=== PATIENT | male | born 1955 | race Caucasian/White ===

== ENCOUNTER 2020-09-28 15:45 | Emergency (ER) | payer BC, OTHER ==
--- OUTSIDE RECORDS SUMMARY | 2020-09-28 15:46 | XMS REPORT | Summary of Care ---
:1955 Author Organization [facility] Address [address] [place] [address] Care Team Providers Name Role Phone Osvaldo Ambrose MD Primary Care Provider [phone] Reason for Visit Reason Comments Follow-up medication Encounter Details Date Type Department Care Team Description 07/10/2020 Office Visit [facility] Logan Elias M D Essential hypertension (Primary Dx); Cardiology- [address] Ascending aorta dilatation; [address] [place] [address] Morbid obesity with BMI of 50.0-59.9, ad ult; [facility], [address] Hyperlipidemia, unspecified hyperlipidem ia type [place], [place] [phone] Allergies No Known Allergiesdocumented as of this encounter (statuses as of 07/12/2020) Medications Medication Sig Dispensed Refills Start Date End Date Status sildenafil (VIAGRA) 100 mg TAKE ONE 6 tablet 07/08/2019 Active tabletIndications: Erectile TABLET BY dysfunction, unspecified MOUTH ONCE erectile dysfunction type DAILY NEEDED lisinopril 20 mg Take 1 tablet 90 tablet 07/08/2019 Active tabletIndications: by mouth Essential hypertension daily. Azelastine (ASTEPRO) 0.15 % Use 1 [place] 30 mL 07/08/2019 Active (205.5 mcg) nasal in each sprayIndications: Chronic nostril allergic rhinitis daily. atorvastatin 40 mg Take 1 tablet 90 tablet 07/08/2019 Active tabletIndications: by mouth at Hypercholesterolemia bedtime. pantoprazole 40 mg EC Take 1 tablet 30 tablet 5 05/24/2020 Active tabletIndications: by mouth Gastroesophageal reflux daily. disease without esophagitis carvediloL 6.25 mg tablet Take 1 tablet 60 tablet 5 06/04/2020 Active by mouth 2 (two) times daily with meals. documented as of this encounter (statuses as of 07/12/2020) Active Problems Problem Noted Date Prediabetes 10/28/2017 Chronic allergic rhinitis, unspecified seasonality, un specified trigger 10/20/2017 Morbid obesity with BMI of 50.0-59.9, adult 10/20/2017 Bilateral lower extremity edema 10/20/2017 Non-seasonal allergic rhinitis due to pollen 6 Hypercholesterolemia 08/29/2016 ED (erectile dysfunction) 08/29/2016 Essential hypertension 08/29/2016 documented as of this encounter (statuses as of 07/12/2020) Social History Tobacco Use Types Packs/Day Years Used Date Former Smoker Quit: 1988 Smokeless Tobacco: Never Used Alcohol Use Drinks/Week oz/Week Comments Yes 1 Shots of liquor 1.0 0 Standard drinks or equivalent Sex Assigned at Date Recorded Not on file COVID-19 Exposure Response Date Recorded In the last month, have you been in contact with No / Unsure 07/10/2020 11:39 AM CDT someone who was confirmed or suspected to have Coronavirus / COVID-19? documented as of this encounter Last Filed Vital Signs Vital Sign Reading Time Taken Comments Blood Pressure 122/66 07/10/2020 11:39 AM CDT Pulse 69 07/10/2020 11:39 AM CDT Temperature - - Respiratory Rate 18 07/10/2020 11:39 AM CDT Oxygen Saturation - - Inhaled Oxygen Concentration - - Weight 175.8 kg (387 lb 9.6 oz) 07/10/2020 11:39 AM CDT Height 193 cm (6' 4") 07/10/2020 11:39 AM CDT Body Mass Index 47.18 07/10/2020 11:39 AM CDT documented in this encounter Progress Notes Logan Elias MD - 07/10/2020 11:20 AM CDT CARDIOLOGY CLINIC NOTE 07/10/2020 Reason for Referral/Presenting Complaint: ER follow up PCP: Osvaldo Ambrose History of Present Illness: Eugenio Pavon is a 65 years old male with history of morbid obesity, HTN and HLD. In 05/2020 he wentto [facility] ER for nausea and burping. Relieved by GI cocktail. No chest pain. Chronic dyspnea on exertion. ECHO showed normal LVEF. 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 We added coreg 6.25 mg BID. His BP is normal now. Feeling well. Cardiovascular testing: EKG: Normal sinus rhythm Low voltage QRS ECHO There is mild concentric left ventricular hypertrophy. Left ventricular systolic function is normal. Diastolic function is impaired relaxation. The right ventricle is normal in size and function. RVSP: 17 + RAP. IVC not well seen. Moderately dilated ascending aorta. Borderline aortic root dilatation. Review of Systems: General: (-) fever, (-) chills, (-) weight change, (-) dizziness, (-) fatigue Skin: (-) rash HEENT: (-) headache, (-) change in vision Neck: (-) difficulty swallowing Heme: negative Resp: (-) cough, (+) dyspnea on exertion Cardio: (-) chest pain, (-) palpitations, (-) syncope GI: (-) vomiting, (-) diarrhea : negative Endo: (-) diabetes, (-) thyroid disease Neuro: (-) numbness, (-) tingling, (-) weakness Back: (-) pain FRANKIE: (-) muscle pain, (-) claudication Psych: (-) anxiety, (-) depression Past Medical History: Past Medical History: Diagnosis Date Allergic rhinitis ED (erectile dysfunction) Hyperlipidemia Hypertension Current Medications: Current Outpatient Medications Medication Sig Dispense Refill carvediloL 6.25 mg tablet Take 1 tablet by mouth 2 (two) times daily with meals. 60 tablet 5 pantoprazole 40 mg EC tablet Take 1 tablet by mouth daily. 30 tablet 5 lisinopril 20 mg tablet Take 1 tablet by mouth daily. 90 tablet 4 atorvastatin 40 mg tablet Take 1 tablet by mouth at bedtime. 90 tablet 4 Azelastine (ASTEPRO) 0.15 % (205.5 mcg) nasal spray Use 1 [place] in each nostril daily. 30 mL 12 sildenafil (VIAGRA) 100 mg tablet TAKE ONE TABLET BY MOUTH ONCE DAILY NEEDED 6 tablet 12 No current facility-administered medications for this visit. Social History: Social History Socioeconomic History Marital status: Spouse name: Not on file Number of children: Not on file Years of education: Not on file Highest education level: Not on file Occupational History Not on file Social Needs Financial resource strain: Not on file Food insecurity Worry: Not on file Inability: Not on file Transportation needs Medical: Not on file Non-medical: Not on file Tobacco Use Smoking status: Former Smoker Quit date: 1988 Years since quittin.7 Smokeless tobacco: Never Used Substance and Sexual Activity Alcohol use: Yes Alcohol/week: 1.0 standard drinks Types: 1 Shots of liquor per week Drug use: No Sexual activity: Yes Partners: Female Lifestyle Physical activity Days per week: Not on file Minutes per session: Not on file Stress: Not on file Relationships Social connections Talks on phone: Not on file Gets together: Not on file Attends methodist service: Not on file Active member of club or organization: Not on file Attends meetings of clubs or organizations: Not on file Relationship status: Not on file Intimate partner violence Fear of current or ex partner: Not on file Emotionally abused: Not on file Physically abused: Not on file Forced sexual activity: Not on file Other Topics Concern Not on file 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 Family History Family History Problem Relation Age of Onset Heart Mother Heart Father CHF, pacemaker Hypertension Father Physical Examination: BP 122/66 (BP Location: Right arm, Patient Position: Sitting, BP CUFF SIZE: Adult Large) | Pulse 69 | Resp 18 | Ht 6' 4" (1.93 m) | Wt 387 lb 9.6 oz (175.8 kg) | BMI 47.18 kg/m Constitutional: alert and oriented x 3 (person, place and date/time); no apparent distress, obese ENT: normocephalic atraumatic, supple, no lymphadenopathy, no bruits, no JVD Lungs: clear to auscultation bilaterally Cardiovascular: S1, S2 normal, regular; no murmurs, rubs or gallops GI: soft; non-tender; non-distended; normoactive bowel sounds : not examined Musculoskeletal: Extremities: no clubbing, cyanosis, or edema Skin: no rashes Neuro: no focal deficits Assessment/Plan: ICD-10-CM ICD-9-CM 1. Essential hypertension I10 401.9 2. Ascending aorta dilatation I77.810 447.71 3. Morbid obesity with BMI of 50.0-59.9, adult E66.01 278.01 Z68.43 V85.43 4. Hyperlipidemia, unspecified hyperlipidemia type E78.5 272.4 CRUZ--likely due to morbid obesity. Consider stress test in the future. HTN--It has been well controlled with the addition of coreg. Advised to check at home. Continue lisinopril. HLD--continue lipitor. Ascending aorta dilation--will get serial ECHO. Patient was counseled for lifestyle modifications including: diet, exercise and weight loss. RTC 6 months Logan Elias MD, FACCBRAYDEN Supervisor General, Division of Cardiology [facility] documented in this encounter Plan of Treatment Date Type Specialty Care Team Description 01/07/2021 Office Visit Cardiology Logan Elias M D [address] [place] [address] [place] [address] [phone] Health Maintenance Due Date Last Done Comments HEPATITIS C (HCV) SCREEN 1955 DTaP,Tdap,and Td Vaccines (1 - Tdap) 1973 COLON CANCER SCREENING ANNUAL FIT/FOBT 2004 COLON CANCER SCREENING FIT DNA EVERY 3 YEARS 2004 COLON CANCER SCREENING SIGMOIDOSCOPY EVERY 5 YEARS 2004 COLONOSCOPY 2004 Colorectal Cancer Screening 2004 Zoster Recombinant Vaccine (SHINGRIX) (1 of 2) 2004 Medicare Wellness Visit 2019 PNEUMOCOCCAL VACCINES 65+ (1 of 1 - PPSV23) 2019 INFLUENZA VACCINE (#1) 2020 Depression Screening 09/12/2020 09/12/2019 documented as of this encounter Results Not on filedocumented in this encounter Visit Diagnoses Diagnosis Essential hypertension - Primary Unspecified essential hypertension Ascending aorta dilatation Thoracic aortic ectasia Morbid obesity with BMI of 50.0-59.9, ad ult Hyperlipidemia, unspecified hyperlipidem ia type documented in this encounter Insurance Payer Benefit Plan / Subscriber ID Effective Dates Phone Addre ss Type Group MEDICARE MEDICARE PART [id number] 2019-Celena [phone] P. [address]. [facility] Medicare A & B nt 2 [id number] [place] [phone] ([place]) [address] [address] documented as of this encounter
--- OUTSIDE RECORDS SUMMARY | 2020-09-28 15:47 | XMS REPORT | Summary of Care ---
:1955 Author Organization [facility] Address [address] [place] [address] Care Team Providers Name Role Phone Osvaldo Ambrose MD Primary Care Provider [phone] Reason for Visit Reason Comments Follow-up medication Encounter Details Date Type Department Care Team Description 07/10/2020 Office Visit [facility] Logan Elias M D Essential hypertension (Primary Dx); Cardiology- [address] Ascending aorta dilatation; [address] [place] [address] Morbid obesity with BMI of 50.0-59.9, ad ult; [facility], [address] Hyperlipidemia, unspecified hyperlipidem ia type [place], [place] [phone] Allergies No Known Allergiesdocumented as of this [...] daily. Azelastine (ASTEPRO) 0.15 % Use 1 Kim 30 mL 07/08/2019 Active (205.5 mcg) nasal [...] HTN and HLD. In 05/2020 he wentto [facility] ER for nausea and burping. Relieved [...] % (205.5 mcg) nasal spray Use 1 Kim in each nostril daily. 30 mL 12 [...] file Gets together: Not on file Attends baptism service: Not on file Active member of [...] RTC 6 months Logan Elias MD, FACCBRAYDEN Mathematical Statistician, Division of Cardiology [facility] documented in this encounter Plan of Treatment Date Type Specialty Care Team Description 01/07/2021 Office Visit Cardiology Logan Elias M D [address] [place] [address] [place] [address] [phone] Health Maintenance Due Date Last Done Comments [...] Addre ss Type Group MEDICARE MEDICARE PART [id number] 2019-Celena [phone] [address] [address] Medicare A & B nt 2 [id number] [place] [phone] Guarantor Name Account Type Relation to Date of Phone Bill ing Patient Address Eugenio Pavon Personal/Family Self [address] [place] [address] ([place]) [address] [address] documented as of this encounter
--- OUTSIDE RECORDS SUMMARY | 2020-09-28 15:47 | XMS REPORT | Summary of Care ---
:1955 Author Organization [facility] Address [address] [place] [address] Care Team Providers Name Role Phone Osvaldo Ambrose MD Primary Care Provider [phone] Reason for Visit Reason Comments Refill Request Encounter Details Date Type Department Care Team Description 08/27/2020 Office Visit [facility] Family Osvaldo Ambrose hypertension (Primary Dx); Medicine - Atif Jacinto MD Hypercholesterolemia; [address] [place] [address] Chronic allergic rhinitis; Drive [place], [place] Erectile dysfunction, unspec ified [place] [phone] Allergies No Known Allergiesdocumented as of this encounter (statuses as of 08/27/2020) Medications Medication Sig Dispensed Refills Start End Date Status Date pantoprazole 40 mg EC Take 1 30 tablet 5 Active tabletIndications: tablet by 0 Gastroesophageal reflux mouth disease without daily. esophagitis carvediloL 6.25 mg Take 1 60 tablet 5 A ctive tablet tablet by 0 mouth 2 (two) times daily with meals. atorvastatin 40 mg Take 1 90 tablet 4 A ctive tabletIndications: tablet by 0 Hypercholesterolemia mouth at bedtime. Azelastine (ASTEPRO) Use 1 [place] 30 mL 12 Active 0.15 % (205.5 mcg) nasal in each 0 sprayIndications: nostril Chronic allergic daily. rhinitis lisinopriL 20 mg Take 1 90 tablet 4 Act izabel tabletIndications: tablet by 0 Essential hypertension mouth daily. sildenafiL (VIAGRA) 100 TAKE ONE 10 tablet 12 Active mg tabletIndications: TABLET BY 0 Erectile dysfunction, MOUTH ONCE unspecified erectile DAILY dysfunction type NEEDED sildenafil (VIAGRA) 100 TAKE ONE 6 tablet 12 Discontinued mg tabletIndications: TABLET BY 20 (Reorder) Erectile dysfunction, MOUTH ONCE unspecified erectile DAILY dysfunction type NEEDED lisinopril 20 mg Take 1 90 tablet 4 08/27/20 Dis continued tabletIndications: tablet by 20 ( Reorder) Essential hypertension mouth daily. Azelastine (ASTEPRO) Use 1 [place] 30 mL 12 0 Discontinued 0.15 % (205.5 mcg) nasal in each 07 01 (Reorder) sprayIndications: nostril Chronic allergic daily. rhinitis atorvastatin 40 mg Take 1 90 tablet 4 08/27/20 D iscontinued tabletIndications: tablet by 07 01 ( Reorder) Hypercholesterolemia mouth at bedtime. documented as of this encounter (statuses as of 08/27/2020) Active Problems Problem Noted Date Prediabetes 10/28/2017 Chronic allergic rhinitis, unspecified seasonality, un specified trigger 10/20/2017 Morbid obesity with BMI of 50.0-59.9, adult 10/20/2017 Bilateral lower extremity edema 10/20/2017 Non-seasonal allergic rhinitis due to pollen 6 Hypercholesterolemia 08/29/2016 ED (erectile dysfunction) 08/29/2016 Essential hypertension 08/29/2016 documented as of this encounter (statuses as of 08/27/2020) Social History Tobacco Use Types Packs/Day Years Used Date Former Smoker Quit: 1988 Smokeless Tobacco: Never Used Alcohol Use Drinks/Week oz/Week Comments Yes 1 Shots of liquor 1.0 0 Standard drinks or equivalent Sex Assigned at Date Recorded Not on file COVID-19 Exposure Response Date Recorded In the last month, have you been in contact with No / Unsure 08/27/2020 1:36 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 documented as of this encounter Last Filed Vital Signs Vital Sign Reading Time Taken Comments Blood Pressure 129/73 08/27/2020 1:39 PM IMMIGRATION CASE WORKER Pulse 69 08/27/2020 1:39 PM IMMIGRATION CASE WORKER Temperature - - Respiratory Rate - - Oxygen Saturation - - Inhaled Oxygen Concentration - - Weight 175.5 kg (387 lb) 08/27/2020 1:39 PM IMMIGRATION CASE WORKER Height 182.9 cm (6') 08/27/2020 1:39 PM IMMIGRATION CASE WORKER Body Mass Index 52.49 08/27/2020 1:39 PM IMMIGRATION CASE WORKER documented in this encounter Progress Notes Osvaldo Ambrose MD - 08/27/2020 1:30 PM CST CC: medication refills Eugenio is a 65 year old male Hypertension Chronicity: Chronic Context: normal sodium, not caffeine, not drug abuse, not herbal remedies, not medication change, not noncompliance and not OTC medications used Relieved by: LUCY inhibitors and beta blockers Associated symptoms: no chest pain, no epistaxis, no headaches, no palpitations, no peripheral edemaand no shortness of breath Risk factors: family hx of HTN and obesity No Known Allergies Current Outpatient Medications Medication Sig Dispense Refill atorvastatin 40 mg tablet Take 1 tablet by mouth at bedtime. 90 tablet 4 Azelastine (ASTEPRO) 0.15 % (205.5 mcg) nasal spray Use 1 [place] in each nostril daily. 30 mL 12 lisinopriL 20 mg tablet Take 1 tablet by mouth daily. 90 tablet 4 sildenafiL (VIAGRA) 100 mg tablet TAKE ONE TABLET BY MOUTH ONCE DAILY NEEDED 10 tablet 12 carvediloL 6.25 mg tablet Take 1 tablet by mouth 2 (two) times daily with meals. 60 tablet 5 pantoprazole 40 mg EC tablet Take 1 tablet by mouth daily. 30 tablet 5 No current facility-administered medications for this visit. 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 Respiratory: Negative for shortness of breath. Cardiovascular: Negative for chest pain and palpitations. Neurological: Negative for headaches. BP 129/73 | Pulse 69 | Ht 6' (1.829 m) | Wt 387 lb (175.5 kg) | BMI 52.49 kg/m Physical Exam Constitutional: He is oriented to person, place, and time. He appears well- developed and well-nourished. HENT: Head: Normocephalic and atraumatic. Eyes: Conjunctivae are normal. Neck: Normal range of motion. Neck supple. No JVD present. No tracheal deviation present. No thyromegaly present. Cardiovascular: Normal rate, regular rhythm, normal heart sounds and intact distal pulses. Exam reveals no gallop and no friction rub. No murmur heard. Pulmonary/Chest: Effort normal and breath sounds normal. No respiratory distress. He has no wheezes.He has no rales. He exhibits no tenderness. Abdominal: Soft. Bowel sounds are normal. He exhibits no distension and no mass. There is no abdominal tenderness. There is no rebound and no guarding. Musculoskeletal: Normal range of motion. General: No tenderness or edema. Lymphadenopathy: He has no cervical adenopathy. Neurological: He is alert and oriented to person, place, and time. Skin: Skin is warm and dry. Diagnosis: 1. Essential hypertension lisinopriL 20 mg tablet 2. Hypercholesterolemia atorvastatin 40 mg tablet 3. Chronic allergic rhinitis Azelastine (ASTEPRO) 0.15 % (205.5 mcg) nasal spray 4. Erectile dysfunction, unspecified erectile dysfunction type sildenafiL (VIAGRA) 100 mg tablet Follow up: prn Patient Care Team: Osvaldo Ambrose MD as PCP - General ([facility]-FAMILY MEDICINE) Plan of care, desired health behaviors, goals,& medication discussed with patient. Education resources & self management tools provided and reviewed with AVS. Patient/guardian/family verbalized understanding & agrees to plan of care. Barriers to care: None Ability to manage care: Good documented in this encounter Plan of Treatment Date Type Specialty Care Team Description 01/07/2021 Office Visit Cardiology Logan Elias M D [address] [place] [address] 15 [phone] Health Maintenance Due Date Last Done Comments [...] Essential hypertension - Primary Unspecified essential hypertension Hypercholesterolemia Pure hypercholesterolemia Chronic allergic rhinitis Allergic rhinitis, cause unspecified Erectile dysfunction, unspecified erecti le dysfunction type documented in this encounter Insurance Payer Benefit Plan / Subscriber ID Effective Dates Phone Addre ss Type Group MEDICARE MEDICARE PART [id number] 2019-Celena [phone] [address] Medicare A & B nt 2 [id number] [place] [phone] ([place]) [address] [address] documented as of this encounter"
--- OUTSIDE RECORDS SUMMARY | 2020-09-28 15:47 | XMS REPORT | Summary of Care ---
:1955 Author Organization [facility] Address [address] [place] [address] Care Team Providers Name Role Phone Osvaldo Ambrose MD Primary Care Provider [phone] Reason for Visit Reason Comments Refill Request Encounter Details Date Type Department Care Team Description 08/27/2020 Office Visit [facility] Family Osvaldo Ambrose hypertension (Primary Dx); Medicine - Atif Jacinto MD Hypercholesterolemia; [address] [place] [address] Chronic allergic rhinitis; Drive [place], [place] Erectile dysfunction, unspec ified [place] [phone] Allergies No Known Allergiesdocumented as of this [...] mouth at bedtime. Azelastine (ASTEPRO) Use 1 [place] 30 mL 12 Active 0.15 % (205.5 [...] hypertension mouth daily. 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 documented as of this encounter Last Filed Vital Signs Vital Sign Reading Time Taken Comments Blood Pressure 129/73 08/27/2020 1:39 PM CHIEF BUSINESS OFFICER Pulse 69 08/27/2020 1:39 PM CHIEF BUSINESS OFFICER Temperature - - Respiratory Rate - - Oxygen Saturation - - Inhaled Oxygen Concentration - - Weight 175.5 kg (387 lb) 08/27/2020 1:39 PM CHIEF BUSINESS OFFICER Height 182.9 cm (6') 08/27/2020 1:39 PM CHIEF BUSINESS OFFICER Body Mass Index 52.49 08/27/2020 1:39 PM CHIEF BUSINESS OFFICER documented in this encounter Progress Notes Osvaldo [...] % (205.5 mcg) nasal spray Use 1 [place] in each nostril daily. 30 mL 12 [...] file Gets together: Not on file Attends temple service: Not on file Active member of [...] Office Visit Cardiology Logan Elias M D [address] [place] [address] [phone] Health Maintenance Due Date Last Done Comments [...] Addre ss Type Group MEDICARE MEDICARE PART [id number] 2019-Celena [phone] [address] Medicare A & B nt 2 [id number] [place] [phone] ([place]) [address] [address] documented as of this encounter"
--- OUTSIDE RECORDS SUMMARY | 2020-09-28 15:47 | XMS REPORT | Continuity of Care Document ---
:1955 Author Organization [facility] t Address [address] [place] [address] Care Team Providers Name Role Phone Orville Ambrose MD Attending Clinician Problems This patient has no known problems. Allergies, Adverse Reactions, Alerts This patient has no known allergies or adverse reactions. Medications This patient has no known medications. Procedures This patient has no known procedures. Encounters Start End Encounter Admission Attending Care Care Encounter Source Date/Time Date/Time Type Type Clinicians Facility Department ID 2020-08-27 2020-08-27 Office FRANSICO Ambrose [id number] 13:37:48 13:52:48 Visit [facility] [id number] Orville Srivastava [id number] Sami [id number] nal 044 Office Building One Results This patient has no known results.
[2020-09-28] MEDS ORDERED: LIDOCAINE 1% MPF 5 ML VIAL ONE (17:36)
[2020-09-28] MEDS ORDERED: BUPIVACAINE 0.5% PF 10 ML VIAL ONE (17:36)
[2020-09-28] MEDS ORDERED: TETANUS & DIPHTHERIA TOX,ADULT 0.5 ML VIAL ONE (17:37)
--- NOTE | 2020-09-28 19:01 | ER ---
Nurse's Notes [facility] Name: Eugenio Pavon Age: 65 yrs Sex: Male : 1955 Arrival Date: 09/28/2020 Time: 15:47 Bed 15 Private MD: Diagnosis: Laceration without foreign body of unspecified thumb without damage to nail-left Presentation: 09/28 15:55 Chief complaint: Patient states: "I cut my left thumb with a pocket knife". Moderate aa5 bleeding noted, pressure dressing applied to left thumb. Coronavirus screen: Client denies travel out of the [place] in the last 14 days. At this time, the client does not indicate any symptoms associated with coronavirus-19. Ebola Screen: Patient negative for fever greater than or equal to 101.5 degrees Fahrenheit, and additional compatible Ebola Virus Disease symptoms. Initial Sepsis Screen: Does the patient meet any 2 criteria? No. Patient's initial sepsis screen is negative. Does the patient have a suspected source of infection? No. Patient's initial sepsis screen is negative. Risk Assessment: Do you want to hurt yourself or someone else? Patient reports no desire to harm self or others. Onset of symptoms was September 28, 2020. 15:55 Acuity: OSIEL 4 aa5 15:55 Method Of Arrival: Ambulatory aa5 Historical: - Allergies: 15:54 No Known Allergies; aa5 - PMHx: 15:54 Hypertension; aa5 - Immunization history:: Last tetanus immunization: unknown. - Social history:: Smoking status: Patient denies any tobacco usage or history of. Screenin:25 Abuse screen: Denies threats or abuse. Denies injuries from another. Nutritional sv screening: No deficits noted. Tuberculosis screening: No symptoms or risk factors identified. Fall Risk None identified. Assessment: 17:25 General: Appears in no apparent distress. uncomfortable, obese, well groomed, well sv developed, Behavior is calm, cooperative, appropriate for age. Pain: Complains of pain in palmar aspect of distal phalanx of left thumb Pain currently is 5 out of 10 on a pain scale. Is continuous. Neuro: Level of Consciousness is awake, alert, obeys commands, Oriented to person, place, time, situation, Moves all extremities. Full function Gait is steady, Speech is normal. Respiratory: Respiratory effort is even, unlabored, Respiratory pattern is regular, symmetrical. Derm: Skin is pink, warm \\T\\ dry. 19:00 Reassessment: Patient appears in no apparent distress at this time. Patient and/or jb4 family updated on plan of care and expected duration. Pain level reassessed. Patient is alert, oriented x 3, equal unlabored respirations, skin warm/dry/pink. Provider finishing laceration repair. Vital Signs: 15:55 BP 122 / 72; Pulse 90; Resp 18 S; Temp 97.3(TE); Pulse Ox 98% on R/A; Weight 167.83 kg aa5 (R); Height 6 ft. 0 in. (182.88 cm) (R); Pain 5/10; 16:54 BP 125 / 66; Pulse 82; Resp 16; Pulse Ox 96% ; sv 19:17 Pulse 75; Resp 16; Pulse Ox 100% on R/A; jb4 15:55 Body Mass Index 50.18 (167.83 kg, 182.88 cm) aa5 ED Course: 15:47 Patient arrived in ED. rg4 15:54 Arm band placed on. aa5 15:56 Triage completed. aa5 16:52 Gala Cagle RN is Primary Nurse. sv 16:52 Kael Arrington PA is PHCP. cp 16:52 Cristofer Dejesus MD is Attending Physician. cp 17:25 Patient has correct armband on for positive identification. Bed in low position. Side sv rails up X 1. Door closed. Head of bed elevated. 18:56 Primary Nurse role handed off by Gala Cagle RN sv 19:00 Assist provider with laceration repair on left hand that was 2.5 cm. or less using jb4 sutures. Set up tray. Performed by Kael FANG Dressed with band aid, Patient tolerated well. 19:00 Patient did not have IV access during this emergency room visit. jb4 19:01 Osvaldo Starkey RN is Primary Nurse. 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 Exp: sv 01/31/2022. Lot #: [id number]. } Route: IM; Site: right deltoid; 17:37 Follow up: Response: No adverse reaction sv 18:41 Drug: Lidocaine (1 %) 5 ml {Note: given to Kael FANG.} Volume: 5 ml; Route: Infiltration;sv 18:41 Drug: Marcaine (0.5 %) 5 ml {Note: given to Kael FANG.} Volume: 10 ml; Route: sv Infiltration; Outcome: 19:01 Discharge ordered by . kevin 19:20 Discharged to home ambulatory. jb4 19:20 Condition: stable 19:20 Discharge instructions given to patient, Instructed on discharge instructions, follow up and referral plans. wound care, Demonstrated understanding of instructions, follow-up care, wound care. 19:21 Patient left the ED. jb4 Signatures: Gala Cagle, RN RN Bailey Chinchilla, RN RN aa5 Kael Arrington PA PA cp Garcia, Rubi 4 Osvaldo Starkey, SONG RN jb4
--- NOTE | 2020-09-28 19:01 | EDPHYS ---
Physician Documentation [facility] Name: Eugenio Pavon Age: 65 yrs Sex: Male : 1955 Arrival Date: 09/28/2020 Time: 15:47 Bed 15 Private MD: ED Physician Cristofer Dejesus HPI: 09/28 18:25 This 65 yrs old Male presents to ER via Ambulatory with complaints of Finger cp Laceration. 18:25 The patient or guardian reports a laceration, clean. cp 18:25 The complaints affect the palmar aspect of distal phalanx of left thumb. cp 18:25 Context: resulted from use of pocket knife. cp 18:25 Onset: The symptoms/episode began/occurred just prior to arrival. Associated signs and cp symptoms: Pertinent negatives: cyanosis distally, decreased sensation distally. Historical: - Allergies: 15:54 No Known Allergies; aa5 - PMHx: 15:54 Hypertension; aa5 - Immunization history:: Last tetanus immunization: unknown. - Social history:: Smoking status: Patient denies any tobacco usage or history of. ROS: 18:30 Skin: Positive for laceration(s), of the palmar aspect of distal phalanx of left thumb. cp 18:30 Neuro: Negative for numbness, tingling, weakness. cp 18:30 All other systems are negative. Exam: 18:35 Constitutional: The patient appears in no acute distress, alert, awake, well developed, cp well nourished. 18:35 Musculoskeletal/extremity: ROM: full active range of motion, in the left thumb, cp Perfusion: the extremity is normally perfused throughout, Sensation intact. Nails: intact with no signs of injury to left thumbnail. 18:35 Skin: injury, laceration(s), the wound is approximately 2 cm(s), of the palmar aspect of distal phalanx of left thumb, that can be described as clean, no foreign body, linear, with mild bleeding. Vital Signs: 15:55 BP 122 / 72; Pulse 90; Resp 18 S; Temp 97.3(TE); Pulse Ox 98% on R/A; Weight 167.83 kg aa5 (R); Height 6 ft. 0 in. (182.88 cm) (R); Pain 5/10; 16:54 BP 125 / 66; Pulse 82; Resp 16; Pulse Ox 96% ; sv 19:17 Pulse 75; Resp 16; Pulse Ox 100% on R/A; jb4 15:55 Body Mass Index 50.18 (167.83 kg, 182.88 cm) aa5 Laceration: 18:59 Wound Repair of 2cm ( 0.8in ) subcutaneous laceration to palmar aspect of distal cp phalanx of left thumb. Linear shaped.. Distal neuro/vascular/tendon intact. Anesthesia: Digital block administered with 5 mls of Lido/Marcaine. Wound prep: Moderate cleansing by me, Wound irrigation by me. Skin closed with 4 5-0 Prolene using simple sutures and sterile technique. Dressed with Bacitracin, 4x4's. Patient tolerated well. MDM: 16:59 Patient medically screened. cp 19:00 Data reviewed: vital signs, nurses notes, and as a result, I will discharge patient. cp 19:00 Differential diagnosis: open fracture, tendon injury, simple laceration. Counseling: I cp had a detailed discussion with the patient and/or guardian regarding: the historical points, exam findings, and any diagnostic results supporting the discharge/admit diagnosis, to return to the emergency department if symptoms worsen or persist or if there are any questions or concerns that arise at home. Response to treatment: the patient's symptoms have markedly improved after treatment, and as a result, I will discharge patient. 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 Exp: sv 01/31/2022. Lot #: [id number]. } Route: IM; Site: right deltoid; 17:37 Follow up: Response: No adverse reaction sv 18:41 Drug: Lidocaine (1 %) 5 ml {Note: given to Kael BOYCE} Volume: 5 ml; Route: Infiltration;sv 18:41 Drug: Marcaine (0.5 %) 5 ml {Note: given to Kael FANG.} Volume: 10 ml; Route: sv Infiltration; Disposition: 19:25 Chart complete. cp Disposition: 09/28/20 19:01 Discharged to Home. Impression: Laceration without foreign body of unspecified thumb without damage to nail - left. - Condition is Stable. - Discharge Instructions: Laceration Care, Adult. - Medication Reconciliation Form, Thank You Letter, Antibiotic Education, Prescription Opioid Use form. - Follow up: Private Physician; When: 7 - 10 days; Reason: Staple/Suture removal. - Problem is new. - Symptoms have improved. Addendum: 09/30/2020 06:53 Co-signature as Attending Physician, Cristofer Dejesus MD I agree with the assessment and k dr plan of care. Signatures: Gala Cagle, RN RN Cristofer Chan MD MD kdr Bailey Perez RN RN aa5 Kael Arrington PA PA cp Osvaldo Starkey RN RN jb4 Corrections: (The following items were deleted from the chart) 09/28 19:21 19:01 09/28/2020 19:01 Discharged to Home. Impression: Laceration without foreign body jb4 of unspecified thumb without damage to nail - left. Condition is Stable. Forms are Medication Reconciliation Form, Thank You Letter, Antibiotic Education, Prescription Opioid Use. Follow up: Private Physician; When: 7 - 10 days; Reason: Staple/Suture removal. Problem is new. Symptoms have improved. cp
[2020-10-01 17:18] VITALS: TEMP 97.3
[2020-10-01 17:20] VITALS: BP 125/66
[2020-10-01 17:21] VITALS: O2SAT 100
== END 2020-09-28 19:21 | disposition home or self-care (01) ==
LOC: ER 15:45
PROC: 0JQK0ZZ Repair Left Hand Subcutaneous Tissue and Fascia, Open Approach (ICD-10-PCS; principal; 2020-09-28)
DX: S61.012A Laceration without foreign body of left thumb without damage to nail, initial encounter (principal); W26.0XXA Contact with knife, initial encounter; Y93.9 Activity, unspecified; Y92.9 Unspecified place or not applicable; Z23 Encounter for immunization; I10 Essential (primary) hypertension
CPT/HCPCS: 90471; 90714; 99283

== ENCOUNTER 2020-11-13 06:43 | Emergency (ER) | payer OTHER ==
--- OUTSIDE RECORDS SUMMARY | 2020-11-13 06:45 | XMS REPORT | Summary of Care ---
:1955 Author Organization [facility] Address [address] [place] [address] Care Team Providers Name Role Phone Osvaldo Ambrose MD Primary Care Provider [phone] Reason for Visit Reason Comments Suture Removal Suture removal from Left Nayeli mb Encounter Details Date Type Department Care Team Description 10/08/2020 Office Visit [facility] Family Osvaldo Ambrose Open wo und of left Medicine - Atif Jacinto MD thumb, subsequent [address] [place] [address] DR encounter ([address] [place], [place] Dx) [place] [id number] [phone] Allergies No Known Allergiesdocumented as of this encounter (statuses as of 10/08/2020) Medications Medication Sig Dispensed Refills Start Date End Date Status pantoprazole 40 mg EC Take 1 tablet 30 tablet 5 05/24/2020 Active tabletIndications: by mouth Gastroesophageal reflux daily. disease without esophagitis carvediloL 6.25 mg tablet Take 1 tablet 60 tablet 5 06/04/2020 Active by mouth 2 (two) times daily with meals. atorvastatin 40 mg Take 1 tablet 90 tablet 4 08/27/2020 Active tabletIndications: by mouth at Hypercholesterolemia bedtime. Azelastine (ASTEPRO) 0.15 % Use 1 Bovey 30 mL 12 08/27/2020 Active (205.5 mcg) nasal in each sprayIndications: Chronic nostril allergic rhinitis daily. lisinopriL 20 mg Take 1 tablet 90 tablet 4 08/27/2020 Active tabletIndications: by mouth Essential hypertension daily. sildenafiL (VIAGRA) 100 mg TAKE ONE 10 tablet 12 08/27/2020 Active tabletIndications: Erectile TABLET BY dysfunction, unspecified MOUTH ONCE erectile dysfunction type DAILY NEEDED documented as of this encounter (statuses as of 10/08/2020) Active Problems Problem Noted Date Prediabetes 10/28/2017 Chronic allergic rhinitis, unspecified seasonality, un specified trigger 10/20/2017 Morbid obesity with BMI of 50.0-59.9, adult 10/20/2017 Bilateral lower extremity edema 10/20/2017 Non-seasonal allergic rhinitis due to pollen 6 Hypercholesterolemia 08/29/2016 ED (erectile dysfunction) 08/29/2016 Essential hypertension 08/29/2016 documented as of this encounter (statuses as of 10/08/2020) Social History Tobacco Use Types Packs/Day Years Used Date Former Smoker Quit: 1988 Smokeless Tobacco: Never Used Alcohol Use Drinks/Week oz/Week Comments Yes 1 Shots of liquor 1.0 0 Standard drinks or equivalent Sex Assigned at Date Recorded Not on file documented as of this encounter Last Filed Vital Signs Vital Sign Reading Time Taken Comments Blood Pressure 122/70 10/08/2020 11:19 AM OPS ANALYST Pulse 72 10/08/2020 11:19 AM OPS ANALYST Temperature - - Respiratory Rate - - Oxygen Saturation - - Inhaled Oxygen Concentration - - Weight 179.6 kg (396 lb) 10/08/2020 11:19 AM OPS ANALYST Height 182.9 cm (6') 10/08/2020 11:19 AM OPS ANALYST Body Mass Index 53.71 10/08/2020 11:19 AM OPS ANALYST documented in this encounter Progress Notes Osvaldo Ambrose MD - 10/08/2020 11:00 AM CST CC: suture removal left thumb Eugenio is a 65 year old male Patient has a healing laceration tip of left thumb. No Known Allergies Current Outpatient Medications Medication Sig Dispense Refill atorvastatin 40 mg tablet Take 1 tablet by mouth at bedtime. 90 tablet 4 Azelastine (ASTEPRO) 0.15 % (205.5 mcg) nasal spray Use 1 Bovey in each nostril daily. 30 mL 12 [...] Former Smoker Quit date: 1988 Years since quittin.0 Smokeless tobacco: Never Used Substance and Sexual [...] file Gets together: Not on file Attends anabaptism service: Not on file Active member of [...] CHF, pacemaker Hypertension Father Review of Systems BP 122/70 | Pulse 72 | Ht 6' (1.829 m) | Wt 396 lb (179.6 kg) | BMI 53.71 kg/m Physical Exam Constitutional: He is oriented [...] Skin is warm and dry. Diagnosis: 1. Open wound of left thumb, subsequent encounter sutures removed; healing well Follow up: prn Patient Care Team: Osvaldo [...] Office Visit Cardiology Logan Elias M D [address] [place] [address] 15 [phone] Health Maintenance Due Date Last Done Comments [...] 2019 INFLUENZA VACCINE (#1) 2020 Depression Screening 08/27/2021 08/27/2020 documented as of this encounter Results Not on filedocumented in this encounter Visit Diagnoses Diagnosis Open wound of left thumb, subsequent enc ounter - Primary documented in this encounter Insurance Payer Benefit Plan / Subscriber ID Effective Dates Phone Addre ss Type Group MEDICARE MEDICARE PART [id number] 2019-Celena [phone] Medicare A & B nt 2 [id number] [place] [phone] ([place]) [address] [address] documented as of this encounter"
--- OUTSIDE RECORDS SUMMARY | 2020-11-13 06:45 | XMS REPORT | Continuity of Care Document ---
:1955 Author Organization [facility] t Address [address] [place] [address] Care Team Providers Name Role Phone Orville Ambrose MD Attending Clinician Problems This patient has no known problems. Allergies, Adverse Reactions, Alerts This patient has no known allergies or adverse reactions. Medications This patient has no known medications. Procedures This patient has no known procedures. Encounters Start End Encounter Admission Attending Care Care Encounter Source Date/Time Date/Time Type Type Clinicians Facility Department ID 2020-10-08 2020-10-08 Office FRANSICO Ambrose [id number] 11:08:40 11:23:40 Visit [facility] [id number] Orville Srivastava [id number] Sami [phone] nal 044 Office [address] Results This patient has no known results.
--- OUTSIDE RECORDS SUMMARY | 2020-11-13 06:46 | XMS REPORT | Summary of Care ---
:1955 Author Organization [facility] Address [address] [place] [address] Care Team Providers Name Role Phone Osvaldo Ambrose MD Primary Care Provider Reason for Visit Reason Comments Suture Removal Suture removal from Left Nayeli mb Encounter Details Date Type Department Care Team Description 10/08/2020 Office Visit [facility] Family Osvaldo Ambrose Open wo und of left Medicine - Atif Jacinto MD thumb, subsequent [address] [place] [address] DR encounter ([address] [place], [place] Dx) [place] [phone] [phone] Allergies No Known Allergiesdocumented as of this [...] bedtime. 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 30 mL 12 [...] file Gets together: Not on file Attends sikhism service: Not on file Active member of [...] Office Visit Cardiology Logan Elias M D [address] [place] [address] 15 [phone] Health Maintenance Due Date Last Done Comments [...] Addre ss Type Group MEDICARE MEDICARE PART [id number] 2019-Celena [phone] Medicare A & B nt 2 [id number] [place] [phone] ([place]) [address] [address] documented as of this encounter"
[2020-11-13] MEDS ORDERED: SMZ./TMP. 800/160 MG TABLET ONE (08:36)
[2020-11-13 08:37] LABS: Urine RBC TNTC /HPF (NONE SEEN)
[2020-11-13] MEDS ORDERED: HYDROCODONE/APAP 5/325 MG TAB ONE (08:37)
[2020-11-13 08:38] LABS: Urine Bacteria <20 /HPF (NONE SEEN)
[2020-11-13 08:43] LABS: Absolute Lymphocytes (CBC) 0.8 K/uL (0.7-4.9); Basophils % 0.4 % (0-1.3); Hematocrit 49.9 % (39.6-49.0); Lymphocytes % 5.9 % (15.3-44.8); MPV 9.1 fL (7.6-11.3); RBC Red Blood Cell Count 5.36 M/uL (4.33-5.43)
[2020-11-13 08:57] LABS: Albumin 3.5 g/dL (3.4-5.0); Bilirubin Total 1.5 mg/dL (0.2-1.0); Potassium 4.5 mmol/L (3.5-5.1); Protein, Total 7.1 g/dL (6.4-8.2)
[2020-11-13 09:08] LABS: Blood Morphology Comment NOT SEEN (NOT SEEN); Platelet Estimate ADEQ; White Blood Cell Scan OK (OK)
--- NOTE | 2020-11-13 10:11 | ER ---
Nurse's Notes [facility] Name: Eugenio Pavon Age: 65 yrs Sex: Male : 1955 Arrival Date: 11/13/2020 Time: 06:48 Bed 19 Private MD: Osvaldo Ambrose Diagnosis: Hematuria, unspecified Presentation: 11/13 07:33 Chief complaint: Patient states: "I started peeing blood during the night and it hurts aa5 when I pee". Pt reports burning with urination and reports urinary frequency and urgency. 07:33 Coronavirus screen: Client denies travel out of the [place] in the last 14 days. At this aa5 time, the client does not indicate any symptoms associated with coronavirus-19. Ebola Screen: Patient negative for fever greater than or equal to 101.5 degrees Fahrenheit, and additional compatible Ebola Virus Disease symptoms. Initial Sepsis Screen: Does the patient meet any 2 criteria? No. Patient's initial sepsis screen is negative. Does the patient have a suspected source of infection? No. Patient's initial sepsis screen is negative. Risk Assessment: Do you want to hurt yourself or someone else? Patient reports no desire to harm self or others. Onset of symptoms was November 2020. 07:33 Acuity: OSIEL 3 aa5 07:33 Method Of Arrival: Ambulatory aa5 Historical: - Allergies: 07:44 No Known Allergies; aa5 - PMHx: 07:44 Hypertension; aa5 - Immunization history:: Adult Immunizations unknown. - Social history:: Smoking status: Patient denies any tobacco usage or history of. Patient/guardian denies using alcohol, street drugs, The patient lives with family. - Family history:: not pertinent. Screenin:40 Abuse screen: Denies threats or abuse. Nutritional screening: No deficits noted. aa5 Tuberculosis screening: No symptoms or risk factors identified. Fall Risk None identified. Assessment: 07:33 General: Appears uncomfortable, Behavior is anxious. Pain: Denies pain. Neuro: Level of aa5 Consciousness is awake, alert, obeys commands, Oriented to person, place, time, situation. Cardiovascular: Patient's skin is warm and dry. Respiratory: Airway is patent Respiratory effort is even, unlabored, Respiratory pattern is regular, symmetrical. GI: Abdomen is obese, Reports constipation, Patient currently denies abdominal pain, diarrhea, nausea, vomiting. : Reports burning with urination, urgency, urinary frequency, hematuria since last night. EENT: No signs and/or symptoms were reported regarding the EENT system. Derm: Skin is pink, warm \\T\\ dry. Musculoskeletal: Range of motion: intact in all extremities. 08:20 Reassessment: Patient is alert, oriented x 3, equal unlabored respirations, skin aa5 warm/dry/pink. Pt now sitting up in bed, pt calm and reports anxiety has decreased. . 08:30 Reassessment: Pt ate some crackers before taking PO medications. . aa5 09:35 Reassessment: Patient appears in no apparent distress at this time. Patient and/or jd3 family updated on plan of care and expected duration. Pain level reassessed. Patient is alert, oriented x 3, equal unlabored respirations, skin warm/dry/pink. 10:33 Reassessment: Patient appears in no apparent distress at this time. Patient and/or jd3 family updated on plan of care and expected duration. Pain level reassessed. Patient is alert, oriented x 3, equal unlabored respirations, skin warm/dry/pink. Patient states feeling better. Patient states symptoms have improved. Vital Signs: 07:35 BP 144 / 88; Pulse 80; Resp 16 S; Temp 99.0(O); Pulse Ox 97% on R/A; Weight 172.37 kg aa5 (R); Height 6 ft. 0 in. (182.88 cm) (R); Pain 0/10; 10:34 BP 138 / 78; Pulse 81; Resp 16 S; Pulse Ox 98% on R/A; jd3 07:35 Body Mass Index 51.54 (172.37 kg, 182.88 cm) aa5 ED Course: 06:48 Patient arrived in ED. am2 06:48 Osvaldo Ambrose MD is Private Physician. am2 07:33 Bailey Perez, SONG is Primary Nurse. aa5 07:33 Arm band placed on Patient placed in an exam room, on a stretcher. aa5 07:33 Patient has correct armband on for positive identification. Bed in low position. Call aa5 light in reach. Side rails up X 1. 07:40 Mark Gandhi MD is Attending Physician. ma2 07:44 Triage completed. aa5 08:08 Urine collected: clean catch specimen, yaima blood, Amount Voided: 30mL sent to lab. aa5 08:25 Initial lab(s) drawn, by me, sent to lab. Inserted saline lock: 20 gauge in left aa5 antecubital area, using aseptic technique. Blood collected. 09:00 Report given to SONG Guido. aa5 10:09 Aamir Hooper MD is Referral Physician. ma2 10:34 No provider procedures requiring assistance completed. IV discontinued, intact, jd3 bleeding controlled, No redness/swelling at site. Pressure dressing applied. Administered Medications: 08:30 Drug: Bactrim (160 mg-800 mg (DS) 1 tablet Route: PO; aa5 09:30 Follow up: Response: No adverse reaction jd3 08:30 Drug: Hammon 5 mg-325 mg 1 tabs Route: PO; aa5 09:30 Follow up: Response: No adverse reaction; RASS: Alert and Calm (0) jd3 Outcome: 10:09 Discharge ordered by . ma2 10:34 Discharged to home ambulatory, with family. jd3 10:34 Condition: stable 10:34 Discharge instructions given to patient, Instructed on discharge instructions, follow up and referral plans. medication usage, Demonstrated understanding of instructions, follow-up care, medications, Prescriptions given X 2. 10:35 Patient left the ED. jd3 Addendum: 11/16/2020 08:01 Addendum: Culture Results: Positive urine culture. No further action required. Bacteria e b sensitive to prescribed antibiotic. Signatures: Bailey Perez RN RN aa5 Sulema Tracy Jonathon, RN RN jd3 Mark Gandhi MD MD in2 Maday Kern Corrections: (The following items were deleted from the chart) 11/13 10:33 10:33 Reassessment: Patient appears in no apparent distress at this time. Patient jd3 and/or family updated on plan of care and expected duration. Pain level reassessed. Patient is alert, oriented x 3, equal unlabored respirations, skin warm/dry/pink. Patient states feeling better. jd3
--- NOTE | 2020-11-13 10:11 | EDPHYS ---
Physician Documentation [facility] Name: Eugenio Pavon Age: 65 yrs Sex: Male : 1955 Arrival Date: 11/13/2020 Time: 06:48 Bed 19 Private MD: Osvaldo Ambrose ED Physician Mark Gandhi HPI: 11/13 09:34 This 65 yrs old Male presents to ER via Ambulatory with complaints of blood ma2 in urine. 09:34 The patient presents with tenderness, urinary symptoms, dysuria, hematuria. Onset: The ma2 symptoms/episode began/occurred gradually, 1 day(s) ago. Associated signs and symptoms: Pertinent positives: dysuria, hematuria, Pertinent negatives: abdominal pain, constipation, diarrhea, nausea, vomiting. Severity of symptoms: At their worst the symptoms were mild, in the emergency department the symptoms are unchanged. The patient has not experienced similar symptoms in the past. Historical: - Allergies: 07:44 No Known Allergies; aa5 - PMHx: 07:44 Hypertension; aa5 - Immunization history:: Adult Immunizations unknown. - Social history:: Smoking status: Patient denies any tobacco usage or history of. Patient/guardian denies using alcohol, street drugs, The patient lives with family. - Family history:: not pertinent. ROS: 09:34 Constitutional: Negative for fever, chills, and weight loss. ma2 09:34 All other systems are negative. Exam: 09:34 Constitutional: This is a well developed, well nourished patient who is awake, alert, ma2 and in no acute distress. ENT: Nares patent. No nasal discharge, no septal abnormalities noted. Tympanic membranes are normal and external auditory canals are clear. Oropharynx with no redness, swelling, or masses, exudates, or evidence of obstruction, uvula midline. Mucous membranes moist. Neck: Trachea midline, no thyromegaly or masses palpated, and no cervical lymphadenopathy. Supple, full range of motion without nuchal rigidity, or vertebral point tenderness. No Meningismus. Chest/axilla: Normal chest wall appearance and motion. Nontender with no deformity. No lesions are appreciated. Cardiovascular: Regular rate and rhythm with a normal S1 and S2. No gallops, murmurs, or rubs. Normal PMI, no JVD. No pulse deficits. Respiratory: Lungs have equal breath sounds bilaterally, clear to auscultation and percussion. No rales, rhonchi or wheezes noted. No increased work of breathing, no retractions or nasal flaring. Abdomen/GI: Soft, non-tender, with normal bowel sounds. No distension or tympany. No guarding or rebound. No evidence of tenderness throughout. Skin: Warm, dry with normal turgor. Normal color with no rashes, no lesions, and no evidence of cellulitis. MS/ Extremity: Pulses equal, no cyanosis. Neurovascular intact. Full, normal range of motion. Neuro: Awake and alert, GCS 15, oriented to person, place, time, and situation. Cranial nerves II-XII grossly intact. Motor strength 5/5 in all extremities. Sensory grossly intact. Cerebellar exam normal. Normal gait. Vital Signs: 07:35 BP 144 / 88; Pulse 80; Resp 16 S; Temp 99.0(O); Pulse Ox 97% on R/A; Weight 172.37 kg aa5 (R); Height 6 ft. 0 in. (182.88 cm) (R); Pain 0/10; 10:34 BP 138 / 78; Pulse 81; Resp 16 S; Pulse Ox 98% on R/A; jd3 07:35 Body Mass Index 51.54 (172.37 kg, 182.88 cm) aa5 MDM: 07:[address] [facility] 09:34 Differential diagnosis: urinary retention, prostatitis, urethritis. Data reviewed: [facility] vital signs, nurses notes. Counseling: I had a detailed discussion with the patient and/or guardian regarding: the historical points, exam findings, and any diagnostic results supporting the discharge/admit diagnosis, the presence of at least one elevated blood pressure reading (>120/80) during this emergency department visit, the need for outpatient follow up. Response to treatment: the patient's symptoms have markedly improved after treatment. 11/13 08:09 Order name: UA aa5 11/13 08:17 Order name: CBC with Diff ut2 11/13 08:17 Order name: CMP ut2 11/13 08:17 Order name: CK ut2 11/13 08:39 Order name: Urine Microscopic Only; Complete Time: 09:46 EDMS 11/13 08:43 Order name: CBC with Automated Diff; Complete Time: 09:46 EDMS 11/13 07:42 Order name: Urine Dipstick-Ancillary (obtain specimen); Complete Time: 08:13 ma2 11/13 08:57 Order name: Comprehensive Metabolic Panel; Complete Time: 09:46 EDMS 11/13 08:57 Order name: Creatine Phosphokinase; Complete Time: 09:46 EDMS 11/13 09:08 Order name: CBC Smear Scan; Complete Time: 09:46 EDMS Administered Medications: 08:30 Drug: Bactrim (160 mg-800 mg (DS) 1 tablet Route: PO; aa5 09:30 Follow up: Response: No adverse reaction jd3 08:30 Drug: Peridot 5 mg-325 mg 1 tabs Route: PO; aa5 09:30 Follow up: Response: No adverse reaction; RASS: Alert and Calm (0) jd3 Disposition: 11/13/20 10:09 Discharged to Home. Impression: Hematuria, unspecified. - Condition is Stable. - Discharge Instructions: Hematuria, Adult. - Prescriptions for Diclofenac Sodium 75 mg Oral Tablet Sustained Release - take 1 tablet by ORAL route 2 times per day; 30 tablet. Bactrim DS 800- 160 mg Oral Tablet - take 1 tablet by ORAL route every 12 hours for 10 days; 20 tablet. - Medication Reconciliation Form, Thank You Letter, Antibiotic Education, Prescription Opioid Use form. - Follow up: Aamir Hooper MD; When: 24 Hours; Reason: If symptoms return. Signatures: Dispatcher [employer] [facility] Bailey Perez RN RN aa5 Hay Ram RN RN jd3 Mark Gandhi MD MD ma2 Corrections: (The following items were deleted from the chart) 10:35 10:09 11/13/2020 10:09 Discharged to Home. Impression: Hematuria, unspecified. jd3 Condition is Stable. Prescriptions for Diclofenac Sodium 75 mg Oral Tablet Sustained Release - take 1 tablet by ORAL route 2 times per day; 30 tablet, Bactrim DS 800-160 mg Oral Tablet - take 1 tablet by ORAL route every 12 hours for 10 days; 20 tablet. and Forms are Medication Reconciliation Form, Thank You Letter, Antibiotic Education, Prescription Opioid Use. Follow up: Aamir Hooper; When: 24 Hours; Reason: If symptoms return. ma2
[2020-11-13 10:42] VITALS: TEMP 99
[2020-11-13 10:43] VITALS: BP 138/78; O2SAT 98
== END 2020-11-13 10:35 | disposition home or self-care (01) ==
LOC: ER 06:43
DX: R31.9 Hematuria, unspecified (principal); R30.0 Dysuria; I10 Essential (primary) hypertension
CPT/HCPCS: 36415; 80053; 81015; 82550; 85025; 87077; 87086; 87088; 87186; 99284